=== PATIENT | female | born 1995 | race Hispanic/Latino ===

== ENCOUNTER 2022-06-06 12:35 | Emergency (ER) | payer BC ==
--- NOTE | 2022-06-06 12:58 | EDPHYS ---
Physician Documentation [facility] Name: Geni Kuhn Age: 27 yrs Sex: Female : 1995 Arrival Date: 06/06/2022 Time: 12:39 Bed Waiting Private MD: ED Physician Maxwell Briceno HPI: 06/06 13:05 This 27 yrs old Female presents to ER via Ambulatory with complaints of Eye jh7 Swelling. 13:05 The patient is experiencing matting or discharge, pain, redness, to the left eye. jh7 Onset: The symptoms/episode began/occurred yesterday. Associated signs and symptoms: Pertinent negatives: chills, dizziness, ear ache, fever, headache, runny nose. 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 - Social history:: Smoking status: Patient denies any tobacco usage or history of. ROS: 13:05 Constitutional: Negative for fever, chills, and weight loss, ENT: Negative for injury, jh7 pain, and discharge, Cardiovascular: Negative for chest pain, palpitations, and edema, Respiratory: Negative for shortness of breath, cough, wheezing, and pleuritic chest pain, Back: Negative for injury and pain, MS/Extremity: Negative for injury and deformity, Skin: Negative for injury, rash, and discoloration, Neuro: Negative for headache, weakness, numbness, tingling, and seizure. 13:05 Eyes: Positive for discharge, itching, matting, pain, redness, swelling, Negative for vision loss, visual disturbance. 13:05 All other systems are negative. Exam: 13:05 Constitutional: This is a well developed, well nourished patient who is awake, alert, jh7 and in no acute distress. Head/Face: Normocephalic, atraumatic. ENT: Nares patent. No nasal discharge, no septal abnormalities noted. Tympanic membranes are normal and external auditory canals are clear. Oropharynx with no redness, swelling, or masses, exudates, or evidence of obstruction, uvula midline. Mucous membranes moist. Cardiovascular: Regular rate and rhythm with a normal S1 and S2. No gallops, murmurs, or rubs. Normal PMI, no JVD. No pulse deficits. Respiratory: Lungs have equal breath sounds bilaterally, clear to auscultation and percussion. No rales, rhonchi or wheezes noted. No increased work of breathing, no retractions or nasal flaring. Skin: Warm, dry with normal turgor. Normal color with no rashes, no lesions, and no evidence of cellulitis. MS/ Extremity: Pulses equal, no cyanosis. Neurovascular intact. Full, normal range of motion. Neuro: Awake and alert, GCS 15, oriented to person, place, time, and situation. Motor strength 5/5 in all extremities. Sensory grossly intact. Normal gait. 13:05 Eyes: Periorbital structures: L upper stye, Pupils: equal, round, and reactive to light and accomodation, Extraocular movements: intact throughout, Conjunctiva: exudate, in the left eye, injected, in the left eye. Vital Signs: 13:03 BP 118 / 68; Pulse 72; Resp 16; Temp 98.6; Pulse Ox 100% ; Weight 65.77 kg; Height 5 [facility] ft. 0 in. (152.40 cm); Pain 0/10; 13:03 Body Mass Index 28.32 (65.77 kg, 152.40 cm) [facility] MDM: 12:45 Patient medically screened. [facility] 12:50 Differential diagnosis: Corneal abrasion of left eye. Infectious conjunctivitis in left [facility] eye. Stye. Data reviewed: vital signs, nurses notes. I considered the following discharge prescriptions or medication management in the emergency department Prescribed erythromycin ointment. Test considered but Not performed: Other Details Fluorescein stain not done due to the patient experiencing no foreign body sensation or pain. Counseling: I had a detailed discussion with the patient and/or guardian regarding: the historical points, exam findings, and any diagnostic results supporting the discharge/admit diagnosis, to return to the emergency department if symptoms worsen or persist or if there are any questions or concerns that arise at home. Administered Medications: No medications were administered Disposition: 16:18 Co-signature as Attending Physician, Maxwell Briceno MD I reviewed the patient's care rt provided by the Advanced Practice Provider and agree with the diagnosis and treatment plan. Disposition Summary: 06/06/22 12:57 Discharge Ordered Location: Home [facility] Problem: new [facility] Symptoms: are unchanged [facility] Condition: Stable [facility] Diagnosis - Other mucopurulent conjunctivitis, left eye 7 - Stye of the Left Upper Lid [facility] Followup: [facility] - With: Private Physician - When: 2 - 3 days - Reason: Recheck today's complaints Discharge Instructions: - Discharge Summary Sheet [facility] - Bacterial Conjunctivitis, Adult 7 - Stye [facility] Forms: - Medication Reconciliation Form [facility] - Work release form [email or web address] - Thank You Letter [facility] - Antibiotic Education [facility] Prescriptions: - Erythromycin 5 mg/gram (0.5 %) Ophthalmic Ointment - apply 1 centimeter by OPHTHALMIC route 2-3 times daily for 7 days; 1 tube; [facility] Refills: 0, Product Selection Permitted Signatures: Renata Bacon RN RN 5 Princess Mayen, PANTRY WORKER PANTRY WORKER 7 Maxwell Briceno MD MD rt
--- NOTE | 2022-06-06 13:06 | ER ---
Nurse's Notes [facility] Name: Geni Kuhn Age: 27 yrs Sex: Female : 1995 Arrival Date: 06/06/2022 Time: 12:39 Bed Waiting Private MD: Diagnosis: Other mucopurulent conjunctivitis, left eye;Stye of the Left Upper Lid Presentation: 06/06 13:03 Chief complaint: Patient states: i have this eye swelling started yesterday morning, i 5 think its a stye or something. Coronavirus screen: Vaccine status: Patient reports being unvaccinated. Client denies travel out of the [place] in the last 14 days. Ebola Screen: Patient negative for fever greater than or equal to 101.5 degrees Fahrenheit, and additional compatible Ebola Virus Disease symptoms Patient denies exposure to infectious person. Patient denies travel to an Ebola-affected area in the 21 days before illness onset. Initial Sepsis Screen: Does the patient meet any 2 criteria? No. Patient's initial sepsis screen is negative. Does the patient have a suspected source of infection? No. Patient's initial sepsis screen is negative. Risk Assessment: Do you want to hurt yourself or someone else? Patient reports no desire to harm self or others. 13:03 Method Of Arrival: Ambulatory [facility] 13:03 Acuity: JAYE 4 [facility] Triage Assessment: 13:04 General: Appears in no apparent distress. Behavior is calm, cooperative, appropriate [facility] for age. Pain: Denies pain. 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 - Social history:: Smoking status: Patient denies any tobacco usage or history of. Vital Signs: 13:03 BP 118 / 68; Pulse 72; Resp 16; Temp 98.6; Pulse Ox 100% ; Weight 65.77 kg; Height 5 [facility] ft. 0 in. (152.40 cm); Pain 0/10; 13:03 Body Mass Index 28.32 (65.77 kg, 152.40 cm) [facility] ED Course: 12:39 Patient arrived in ED. mr 12:45 Princess Mayen, [facility] 7 12:45 Maxwell Briceno MD is Attending Physician. 7 13:04 Triage completed. jh5 13:04 Arm band placed on right wrist. jh5 Administered Medications: No medications were administered Medication: 13:05 VIS not applicable for this client. 5 Outcome: 12:57 Discharge ordered by . jh7 13:05 Discharged to home ambulatory. jh5 13:05 Condition: good 13:05 Discharge instructions given to patient. 13:05 Patient left the ED. [facility] Signatures: Ranjana Hernandez JordiRenata, RN RN 5 Princess Mayen FNP FAMILY HELPER [facility]
[2022-06-06 13:12] VITALS: BP 118/68; TEMP 98.6; O2SAT 100
== END 2022-06-06 13:05 | disposition home or self-care (01) ==
LOC: ER 12:35
DX: H10.021 Other mucopurulent conjunctivitis, right eye (principal); H00.014 Hordeolum externum left upper eyelid
CPT/HCPCS: 99281